=== PATIENT | male | born 1975 | race Caucasian/White ===

== ENCOUNTER 2018-11-10 11:00 | Emergency (ER) | payer OTHER ==
[~2018-11-10] VITALS: Ht 188 cm; Wt 86.2 kg
[2018-11-10] MEDS ORDERED: NORCO 5-325 TA1 EACH PO (12:06)
[2018-11-10] MEDS ORDERED: KEFLEX500 M1 PO (12:06)
[2018-11-10 12:33] VITALS: BP 123/77
== END 2018-11-10 13:02 | disposition home or self-care (01) ==
LOC: ER 11:00
DX: S61.201A Unspecified open wound of left index finger without damage to nail, initial encounter (principal); W26.8XXA Contact with other sharp object(s), not elsewhere classified, initial encounter; Y93.89 Activity, other specified; Y92.89 Other specified places as the place of occurrence of the external cause; Y99.8 Other external cause status